=== PATIENT | male | born 1980 | race Caucasian/White ===

== ENCOUNTER 2021-01-21 20:40 | Emergency (ER) | payer OTHER ==
[2021-01-21 21:16] LABS: HEMOGLOBIN 15.9 gm/dl (14.0-17.5); RED BLOOD COUNT 5.56 M/UL (4.20-5.50); WHITE BLOOD COUNT 7.5 K/UL (4.5-11.0)
[2021-01-21 21:30] LABS: BUN/CREATININE RATIO 13 (0-10)
[2021-01-21] MEDS ORDERED: ZOFRAN4 MG PO (22:25)
[2021-01-21] MEDS ORDERED: BENTYL 10MG CAP10 MG PO (22:25)
== END 2021-01-21 22:36 | disposition home or self-care (01) ==
LOC: ER1 20:40
PROVIDERS: Physician Assistant Medical
DX: R11.2 Nausea with vomiting, unspecified (principal); R19.7 Diarrhea, unspecified; E11.9 Type 2 diabetes mellitus without complications; F17.290 Nicotine dependence, other tobacco product, uncomplicated
CPT/HCPCS: 80053; 81001; 83690; 85025; 99284

== ENCOUNTER 2021-03-17 19:56 | Emergency (ER) | payer OTHER ==
[~2021-03-17 19:56] MED LIST: BENTYL 10MG CAP10 MG PO; ZOFRAN4 MG PO
[2021-03-17 20:26] LABS: HEMOGLOBIN 15.3 gm/dl (14.0-17.5); RED BLOOD COUNT 5.36 M/UL (4.20-5.50); WHITE BLOOD COUNT 12.1 K/UL (4.5-11.0)
[2021-03-17 20:58] LABS: BUN/CREATININE RATIO 11 (0-10)
== END 2021-03-18 00:36 | disposition home or self-care (01) ==
LOC: ER1 19:56
PROVIDERS: Physician Assistant
DX: R07.9 Chest pain, unspecified (principal); E11.9 Type 2 diabetes mellitus without complications; Z79.4 Long term (current) use of insulin; F41.9 Anxiety disorder, unspecified
CPT/HCPCS: 71045; 80053; 80307; 81001; 82550; 82553; 82962; 83874; 84484; 85025; 87086; 93005; 99285